=== PATIENT | male | born 1980 | race Caucasian/White ===

== ENCOUNTER → 2020-06-04 10:12 | Outpatient (CLI) | payer OTHER, SELFPAY ==
[2020-06-04 11:37] LABS: BUN Creatinine Ratio 28.2 (6-22); Blood Urea Nitrogen 22 mg/dL (9-20); Calcium 9.5 mg/dL (8.4-10.2); Carbon Dioxide 24 mmol/L (22-32); Chloride 106 mmol/L (98-107); Estimated Glomerular Filt Rate > 60.0 mL/min (>60); Glucose 106 mg/dL (70-100); HEMOLYSIS 21 (0-50); Potassium 4.3 mmol/L (3.4-5.1); Sodium 138 mmol/L (137-145)
== END ==
PROVIDERS: PCP Student in an Organized Health Care Education/Training Program; Referring Provider Student in an Organized Health Care Education/Training Program; Visit Provider Student in an Organized Health Care Education/Training Program
DX: H93.11 Tinnitus, right ear (principal); R42 Dizziness and giddiness
CPT/HCPCS: 36415; 80048